=== PATIENT | female | born 1995 | race Caucasian/White ===

== ENCOUNTER → 2017-04-18 | Outpatient (CLI) | payer OTHER ==
[~2017-04-18] MED LIST: LEVO75TA41 PO; MECL-62 PO; Z.0.BCPILL PO
[2017-04-18 09:31] LABS: HEMATOCRIT 33.6 % (35.0-46.0); MEAN CELL VOLUME 86.6 FL (80.0-100.0); MEAN CORPUSCULAR HEMOGLOBIN 29.2 PG (27.0-34.0); MEAN CORPUSCULAR HGB CONC 33.7 % (32.0-36.0); PLATELET COUNT 233 TH/MM3 (150-450); RED BLOOD COUNT 3.88 MIL/MM3 (4.00-5.30); RED CELL DISTRIBUTION WIDTH 12.6 % (11.6-17.2); REVIEW FLAG FINAL; WHITE BLOOD COUNT 6.9 TH/MM3 (4.0-11.0)
[2017-04-18 09:57] LABS: ANION GAP 10 MEQ/L (5-15); AST (GOT) 12 U/L (16-38); BLOOD UREA NITROGEN 11 MG/DL (7-18); CHLORIDE 106 MEQ/L (98-107); GLOMERULAR FILTRATION RATE 116 ML/MIN (>89); GLUCOSE,FASTING 90 MG/DL (74-99); POTASSIUM 3.6 MEQ/L (3.5-5.1); SODIUM (NA) 139 MEQ/L (136-145)
[2017-04-18 09:58] LABS: ALT (GPT) 23 U/L (9-42)
[2017-04-18 10:06] LABS: ALKALINE PHOSPHATASE 68 U/L (45-117); FREE T4 1.27 NG/DL (0.76-1.46); TOTAL BILIRUBIN ADULT 0.2 MG/DL (0.2-1.0)
== END ==
LOC: PLAB 06:56
PROVIDERS: ATTEND Family Medicine
DX: R42 Dizziness and giddiness (principal); R53.83 Other fatigue; E03.9 Hypothyroidism, unspecified
CPT/HCPCS: 80053; 84439; 84443; 85027

== ENCOUNTER 2017-06-24 07:56 | Emergency (ER) | payer OTHER ==
[2017-06-24 08:02] VITALS: BP 138/90; PULSE 114; RESP 16; TEMP 98.3; O2SAT 99
[2017-06-24] MEDS ORDERED: LEVO75TA3 PO (08:06)
[2017-06-24] MEDS ORDERED: BIRTH CONTROL (08:06)
[2017-06-24 08:17] VITALS: BP 138/90; PULSE 114; RESP 16; TEMP 98.3; O2SAT 99
--- NOTE | 2017-06-24 08:19 | PD ---
HPI Chief Complaint: ENT Complaint Time Seen by Provider: 08:09 Travel History International Travel<30 days: No Contact w/Intl Traveler<30days: No Traveled to known affect area: No History of Present Illness HPI 22-year-old female states she started with nasal congestion last night and developed a sore throat this morning. She states that she felt hot but has not taken anything for her fever. She states she has history of strep throat. She states she has no other concurrent complaints at this time. She states her throat feels worse when she swallows. She denies other modifying factors. PFSH Past Medical History Diminished Hearing: No Genitourinary: Yes (HISTORY OF UTI) Immunizations Current: Yes Thyroid Disease: Yes Tetanus Vaccination: Unknown ?: Not Past Surgical History Surgical History: No Previous Surgery Social History Alcohol Use: No Tobacco Use: No Substance Use: No Allergies-Medications (Allergen,Severity, Reaction): Coded Allergies: Sulfa (Sulfonamide Antibiotics) (Unverified Allergy, Mild, RASH, 06/24/17) Reported Meds & Prescriptions Reported Meds & Active Scripts Active Reported [ Control ] Levothyroxine (Levothyroxine Sodium) 75 Mcg Tab 75 Mcg PO DAILY Review of Systems Except as stated in HPI: all other systems reviewed are Neg Physical Exam Narrative General: No apparent distress, well appearing ENT: Posterior oropharyngx with mild erythema without exudate, postnasal drainage noted, external auditory canals are normal. Bilateral TM clear, rhinorrhea noted Neck: Neck is supple, no meningeal signs, trachea is midline Cardiovascular: Regular rate and rhythm Lungs: No increased respiratory effort noted, CTA bilaterally Abdomen: Nondistended Extremities: No edema Neuro: Awake, motor and sensation grossly intact, normal speech Data Data Last Documented VS Vital Signs Date Time Temp Pulse Resp B/P (MAP) Pulse Ox O2 Delivery O2 Flow Rate FiO2 06/24/17 08:39 06/24/17 08:17 98.3 114 16 99 Orders Orders Group A Rapid Strep Screen (06/24/17 08:13) Strep Culture (Group A) (06/24/17 08:14) Ed Discharge Order (06/24/17 08:34) MDM Medical Decision Making Medical Screen Exam Complete: Yes Emergency Medical Condition: Yes Medical Record Reviewed: Yes (past history confirmed) Differential Diagnosis URI, allergies, strep pharyngitis Narrative Course Patient without exudates on exam, patient also has rhinorrhea and no fever here. Given history Will check strep screen. If strep screen is negative we' ll advise supportive care strep is negative, all questions answered. Patient knows that follow up is incumbent on them and to return to the emergency room immediately if new or worsening symptoms develop. Patient given strict return precautions, vitals reviewed and are normal, agrees to further workup as an outpatient. Diagnosis Primary Impression: Upper respiratory infection Qualified Codes: J06.9 - Acute upper respiratory infection, unspecified Patient Instructions: General Instructions Departure Forms: Tests/Procedures Additional Instructions: return as needed, alternate tylenol and motrin, follow with primary this week Med/Other Pt SpecificInfo: No Change to Meds Disposition: 01 DISCHARGE HOME Condition: Stable Nicole Del Angel MD Jun 24, 2017 08:19
== END 2017-06-24 08:40 | disposition home or self-care (01) ==
LOC: PHED 07:56
DX: J06.9 Acute upper respiratory infection, unspecified (principal)
CPT/HCPCS: 87081; 87880; 99283